=== PATIENT | male | born 1975 | race Caucasian/White ===

== ENCOUNTER 2017-06-21 16:00 | Inpatient (IN) | payer OTHER ==
[~2017-06-21] VITALS: Ht 177.8 cm; Wt 88.5 kg
--- NOTE | ~2017-06-21 | PN ---
Unit #: [id number] #: [id number] Patient: DANIELA CARPENTER [id number] [facility] [address] [place] [address] [id number] I MR#: [id number] NAME: DANIELA CARPENTER. ROOM: 83 Age: 41 Sex: M Admission Date: 06/21/2017 : 1975 Attending Physician: Arnulfo Huizar M.D. Admitting Physician: Arnulfo Huizar M.D. Primary Care Physician: Primary Care Physician Ana Maria DAVILA PROGRESS NOTES DATE 06/23/2017 DISCUSSION The patient is resting comfortably. Staff reports no management issues. His detox continues uneventfully. Dictated by... Arnulfo Huizar M.D. CB/alfreda TD: 06/23/2017 15:33 JOB #: [id number] LOLA PROGRESS NOTES Page 1 of 1 X Arnulfo Huizar MD X PROGRESS NOTE
--- NOTE | ~2017-06-21 | DS ---
Unit #: [id number] #: [id number] Patient: DANIELA CARPENTER [id number] [facility] [address] [place] [address] [id number] MR#: [id number] NAME: DANIELA CARPENTER. ROOM: 83 Age: 41 Sex: M Admission Date: 06/21/2017 : 1975 Discharge Date: 06/26/2017 Attending Physician: Arnulfo Huizar M.D. Primary Care Physician: Primary Care Physician No DISCHARGE SUMMARY REASON FOR ADMISSION The patient is a 41-year-old white male, admitted with a history of methamphetamine and heroin abuse. HOSPITAL COURSE The patient was admitted to the [facility] unit and placed on routine detoxification protocol for opioids. He was continued on previously prescribed medications including, Lexapro, Abilify, BuSpar, and clonidine. His stay in the hospital was marked by virtually no participation within the therapeutic milieu whatsoever. On 06/25, the patient's detox was complete, at that time he did complain that he "nothing had been done about his depression." He was gently but firmly confronted with the fact that he had attended no programming and had been continued on his prescribed psychotropic medications during his stay in the hospital. He was also invited to continue participation in his chemical dependence treatment programming through the auspices of the intensive outpatient program provided by this facility. Discharge was ordered. DISCHARGE DIAGNOSES [place] I Opioid use disorder. Methamphetamine use disorder. Depressive disorder, unspecified. [place] II [place] III [place] IV [place] V PROGNOSIS The patient's prognosis is considered fair. DIET AND ACTIVITY No dietary or physical restrictions were placed on the patient at the time of discharge. Follow up will take place through the auspices of community mental health and chemical dependence treatment resources. Dictated by... Unit #: [id number] #: [id number] Patient: DANIELA CARPENTER Arnulfo Huizar M.D. CB/roldan TD: 06/28/2017 09:14 JOB #: [id number] DISCHARGE SUMMARY Page 1 of 1 X Arnulfo Huizar MD X DISCHARGE SUMMARY
--- NOTE | ~2017-06-21 | PN ---
Unit #: [id number] #: [id number] Patient: DANIELA CARPENTER [id number] [facility] [address] [place] [address] [id number] I MR#: [id number] NAME: DANIELA CARPENTER. ROOM: 83 Age: 41 Sex: M Admission Date: 06/21/2017 : 1975 Attending Physician: Arnulfo Huizar M.D. Admitting Physician: Arnulfo Huizar M.D. Primary Care Physician: Primary Care Physician Ana Maria DAVILA PROGRESS NOTES DATE 06/24/2017 DISCUSSION The patient remains abed and continues to complain of significant physical discomfort related to opiate withdrawal. We continue current treatment. Dictated by... Arnulfo Huizar M.D. CB/alfreda TD: 06/24/2017 15:12 JOB #: [id number] LOLA PROGRESS NOTES Page 1 of 1 X Arnulfo Huizar MD X PROGRESS NOTE
--- NOTE | ~2017-06-21 | HP ---
Unit #: [id number] #: [id number] Patient: PORFIRIO CARPENTER [id number] [place] [address] [id number] I MR#: [id number] NAME: PORFIRIO CARPENTER. ROOM: P183 Age: 41 Sex: M Admission Date: 06/21/2017 : 1975 Attending Physician: Arnulfo Huizar M.D. Admitting Physician: Arnulfo Huizar M.D. Primary Care Physician: Primary Care Physician No HISTORY AND PHYSICAL HISTORY OF PRESENT ILLNESS Porfirio is a 41 year old admitted to [facility] because of his polysubstance abuse which includes IV heroin and methamphetamine. PAST MEDICAL HISTORY 1. Long history of illicit substance abuse to include IV drugs. 2. Hepatitis C. 3. High blood pressure. PAST SURGICAL HISTORY Nothing reported. ALLERGIES No known drug allergies. SOCIAL HISTORY Smokes less than one pack per day. Denies alcohol. Admits to long history of polysubstance abuse to include IV drugs. FAMILY HISTORY Medically noncontributory. REVIEW OF SYSTEMS CONSTITUTIONAL: No fever or chills. HEENT: Denies any sore throat, ear pain or runny nose. CARDIOVASCULAR: Denies chest pain, irregular heart rhythm or palpitations. CHEST: Denies shortness of breath or cough. No hemoptysis. GASTROINTESTINAL: Denies nausea, vomiting, diarrhea or chronic constipation. ENDOCRINE: Denies history of increased thirst or urination. No recent significant weight loss or gain. GENITOURINARY: Denies dysuria, frequency, or hematuria. SKIN: Denies any rashes. HEMATOLOGIC: Denies history of increased bleeding or bruising. MUSCULOSKELETAL: Denies any hot, swollen joints. No generalized muscle pain. NEUROLOGIC: Denies problems with vision or speech. No frequent, severe headaches. No numbness, tingling or weakness in any extremities. Denies loss of bladder or bowel control. CURRENT MEDICATIONS 1. Detox protocol. 2. BuSpar 15 mg t.i.d. Unit #: [id number] #: [id number] Patient: PORFIRIO CARPENTER PHYSICAL EXAMINATION GENERAL: Alert, well nourished. No apparent distress. VITAL SIGNS: Blood pressure 110/66, heart rate 60, respirations 16, and temperature 98.6. WEIGHT: 195. HEIGHT: 5 feet 10 inches. SKIN: Warm and dry without rash or lesion. HEENT: Normocephalic. TMs not viewed. Oral and nasal passages clear. Conjunctivae clear. PERRLA. EOMs intact. NECK: Supple without lymphadenopathy or thyromegaly. HEART: Regular rate and rhythm without murmur. LUNGS: Clear. ABDOMEN: Soft, nontender. : Not done. EXTREMITIES: No evidence of cyanosis, clubbing or edema. Moves all without focal deficit. NEUROLOGICAL: Grossly within normal limits. Cranial Nerves: II: Visual hazel are intact. III, IV AND : Extraocular movements are intact. Pupils are equal, round and reactive to light. V: Facial sensation is grossly normal. VII: Facial movements and expression are normal. VIII: Auditory acuity grossly intact. IX, X: Uvula is midline. Phonation is normal. XI: Patient shrugs shoulders and turns head normally. XII: Tongue protrudes in the midline. Sensory and Motor Function: Sensory and motor sensation is grossly normal. Motor: moves all extremities well. Coordination: Gait is normal. Deep Tendon Reflexes: Intact. IMPRESSION Psychiatric admission. RECOMMENDATIONS PSYCHIATRIC: Per psychiatrist. MEDICAL: I see no contraindication to participate in this facility's activities. MEDICAL PROGNOSIS Good. MEDICAL CONDITION Stable. Dictated by... Lauryn Calles PMichaelAMichael-Amara. for Leonardo Hardy/radha TD: 06/22/2017 15:02 JOB #: [id number] Unit #: [id number] #: [id number] Patient: JAYDENPORFIRIO HERNANDEZ Emeka HISTORY AND PHYSICAL Page 1 of 1 X Lauryn Calles X HISTORY AND PHYSICAL
--- NOTE | ~2017-06-21 | PA ---
Unit #: [id number] #: [id number] Patient: DANIELA CARPENTER [id number] [place] [address] [id number] I MR#: [id number] NAME: DANIELA CARPENTER. ROOM: 83 Age: 41 Sex: M Admission Date: 06/21/2017 : 1975 Date of Assessment: 06/22/2017 Attending Physician: Arnulfo Huizar M.D. Admitting Physician: Arnulfo Huizar M.D. Primary Care Physician: Primary Care Physician No PSYCHIATRIC ASSESSMENT IDENTIFYING INFORMATION The patient is a 41-year-old white male admitted to the [address] [place] [address] for opioid and methamphetamine abuse. CHIEF COMPLAINT "I relapsed." INFORMANT Patient, reliability is good. HISTORY OF PRESENT ILLNESS The patient is a 41-year-old white male admitted to the [address] [place] [address] with a history of intravenous methamphetamine and heroin abuse. The patient reports that he relapsed approximately 1 month ago. Because of his recent relapse, he has lost his home and job. He had previously maintained sobriety for about 3 months after completing programming at "[facility]" and [facility] in [facility]. The patient has never . He is the father of a 22-year-old daughter with whom he has little contact. The patient denies current suicidal or homicidal ideation and denies any psychotic symptoms. He denies any history of medical issues. He denies recent changes in appetite. The patient was prescribed multiple psychotropic medications while in treatment for his substance abuse including clonidine, BuSpar, Abilify, and Lexapro. PAST PSYCHIATRIC HISTORY As above. PAST MEDICAL HISTORY Significant for history of hypertension. MEDICATIONS Lexapro, Abilify, BuSpar, and clonidine. ALLERGIES None. FAMILY HISTORY Noncontributory. SOCIAL HISTORY The patient is currently homeless. He reports substance use as noted previously and is a smoker. He had most recently done factory work but is Unit #: [id number] #: [id number] Patient: DANIELA CARPENTER not presently employed. MENTAL STATUS EXAMINATION Examination at this time reveals the patient to be a well-developed well-nourished white male appearing stated age. He appears to be in moderate physical distress related to opioid withdrawal during interview. He is awake, alert, and oriented in all spheres. His mood is mildly dysphoric, his affect constricted. Speech is generally well coherent. There are no gross deficits in memory or cognition noted. Intelligence is judged to be in the average range based on fund of knowledge. The patient is cooperative throughout the interview. He is currently denying suicidal or homicidal ideation or psychotic features. Judgment and insight appear to be intact. ASSETS AND LIABILITIES The patient's assets: Motivation for change. Liabilities: Homelessness, lack of resources. DIAGNOSTIC IMPRESSION 1. Methamphetamine use disorder. 2. Opioid use disorder. 3. Dysthymic disorder. 4. Hypertension. TREATMENT PLAN The patient remains hospitalized for safety and stabilization. We will continue previously prescribed psychotropic medications and have placed the patient on a routine detoxification protocol for opioids. Suicide precautions are likewise in place. The patient will participate in appropriate order of milieu activities. ESTIMATED LENGTH OF STAY 5 to 7 days. Dictated by... Arnulfo Huizar M.D. VALERI/radha TD: 06/22/2017 14:24 JOB #: [id number] PSYCHIATRIC ASSESSMENT Page 1 of 1 X Arnulfo Huizar MD X PSYCHIATRIC ASSESSMENT
--- NOTE | ~2017-06-21 | DS ---
Unit #: [id number] #: [id number] Patient: DANIELA CARPENTER [id number] [facility] [address] [place] [address] [id number] MR#: [id number] NAME: DANIELA CARPENTER. ROOM: P183 Age: 41 Sex: M Admission Date: 06/21/2017 : 1975 Discharge Date: Attending Physician: Arnulfo Huizar M.D. Primary Care Physician: Primary Care Physician No DISCHARGE SUMMARY ADDENDUM The patient's transportation to [place] was held up secondary to inability of a Medicaid cab. The patient was seen by this physician on 06/26/2017. At that time, it was stressed to the patient that this physician had taken his complaints of depressive symptoms seriously, but that maintenance of sobriety would be necessary for any medication regimen to exert a positive clinical affect. The patient was understanding and discharge to take place on that date. Dictated by... Arnulfo Huizar M.D. CB/eloy TD: 06/26/2017 12:46 JOB #: [id number] DISCHARGE SUMMARY Page 1 of 1 X Arnulfo Huizar MD X DISCHARGE SUMMARY
[2017-06-22 09:45] LABS: BASOPHIL# 0.1 X10e3 (0-0.3); BASOPHIL% 1.3 % (0-2.5); EOSINOPHIL# 0.4 X10e3 (0-0.7); EOSINOPHIL% 6.6 % (0.0-7.0); HEMATOCRIT 37.6 % (38.0-50.0); HEMOGLOBIN 12.2 gm/dL (13.0-16.0); LYMPHOCYTE# 1.9 X10e3 (1.0-3.5); LYMPHOCYTE% 30.4 % (17.0-45.0); MEAN CORPUSCULAR HEMOGLOBIN 26.3 PG (28-34); MEAN CORPUSCULAR HGB CONC 32.5 g/dL (30-36); MONOCYTE# 0.6 X10e3 (0-1.0); NEUTROPHIL# 3.2 X10e3 (1.5-7.1); NEUTROPHIL% 51.7 % (40-75); PLATELET COUNT 243 X10e3 (140-420); RED BLOOD COUNT 4.65 X10e (3.90-5.60); RED CELL DISTRIBUTION WIDTH 17.4 % (11.0-15.5); WHITE BLOOD COUNT 6.2 X10e3 (4.0-10.5)
[2017-06-22 09:48] LABS: DIFF IND NO
[2017-06-22 09:50] LABS: URINE APPEARANCE TURBID; URINE BILIRUBIN NEG (NEG); URINE BLOOD NEG (NEG); URINE COLOR DK YELLOW; URINE GLUCOSE NEG (NEG); URINE KETONE NEG (NEG); URINE LEUKOCYTE ESTERASE NEG (NEG); URINE NITRATE NEG (NEG); URINE PROTEIN NEG (NEG); URINE SPECIFIC GRAVITY 1.028 (1.003-1.035); URINE UROBILINOGEN 0.2 MG/DL (NEG)
[2017-06-22 09:58] LABS: ALBUMIN SERUM 3.2 g/dL (3.5-5.0); BILIRUBIN,TOTAL 0.5 mg/dL (0.2-2.0); BUN/CREATININE RATIO 17.5; CALCIUM SERUM 8.8 mg/dL (8.4-10.2); CREATININE SERUM 0.8 mg/dL (0.6-1.4); GLOM FILT RATE Estimated 109.5 mL/min (>60); POTASSIUM 4.2 mmol/L (3.5-5.1); PROTEIN TOTAL SERUM 6.1 g/dL (6.0-8.3)
[2017-06-22 10:22] LABS: AMPHETAMINE POS (NEG); BARBITURATES NEG (NEG); BENZODIAZEPINES POS (NEG); COCAINE NEG (NEG); MARIJUANA NEG (NEG); OPIATES POS (NEG); TRICYCLIC ANTIDEPRESSANTS NEG (NEG); U METHADONE NEG (NEG)
[2017-06-26 20:35] LABS: HA AB IGM (HEPPAN) Nonreactive (()); HB CORE AB IGM (HEPPAN) Nonreactive (Nonreactive); HB S AG (HEPPAN) Nonreactive (Nonreactive); HEP C AB (HEPPAN) Reactive (Nonreactive)
== END 2017-06-26 16:45 | disposition home or self-care (01) | DRG 897 ==
LOC: P1E 20:14
PROVIDERS: Specialist
PROC: HZ2ZZZZ Detoxification Services for Substance Abuse Treatment (ICD-10-PCS; principal; 2017-06-22)
DX: F15.10 Other stimulant abuse, uncomplicated (principal); F11.10 Opioid abuse, uncomplicated; I10 Essential (primary) hypertension; F34.1 Dysthymic disorder; B19.20 Unspecified viral hepatitis C without hepatic coma; F17.210 Nicotine dependence, cigarettes, uncomplicated; F32.9 Major depressive disorder, single episode, unspecified
CPT/HCPCS: 80053; 80074; 80307; 81003; 85025; 86592; 87522; 87806